=== PATIENT | female | born 1995 ===

== ENCOUNTER 2021-12-29 08:59 | Outpatient (CLI) | payer OTHER | END 2021-12-29 10:14 | disposition home or self-care (01) | LOC: PRENATAL 08:59 | PROVIDERS: ATTEND Obstetrics & Gynecology Maternal & Fetal Medicine | DX: O35.0XX0 Maternal care for (suspected) central nervous system malformation in fetus, not applicable or unspecified (principal); O35.3XX0 Maternal care for (suspected) damage to fetus from viral disease in mother, not applicable or unspecified ==

== ENCOUNTER 2022-01-23 19:54 | Emergency (ER) | payer OTHER ==
[~2022-01-23] VITALS: Ht 152.4 cm; Wt 80.3 kg
[2022-01-23] MEDS ORDERED: PRENA1 CHEW TA1.4 MG (20:04)
[2022-01-23] MEDS ORDERED: FOLIC ACID0.8 M1 (20:04)
== END 2022-01-23 20:32 | disposition home or self-care (01) ==
LOC: ER 19:54
DX: M94.0 Chondrocostal junction syndrome [Tietze] (principal); Z56.6 Other physical and mental strain related to work

== ENCOUNTER 2022-02-24 15:11 | Emergency (ER) | payer OTHER ==
[~2022-02-24] VITALS: Ht 157.5 cm; Wt 80.7 kg
[~2022-02-24 15:11] MED LIST: FOLIC ACID0.8 M1; PRENA1 CHEW TA1.4 MG
== END 2022-02-24 17:45 | disposition home or self-care (01) ==
LOC: ER 15:11
DX: O98.513 Other viral diseases complicating pregnancy, third trimester (principal); U07.1 COVID-19; Z3A.29 29 weeks gestation of pregnancy; A49.3 Mycoplasma infection, unspecified site

== ENCOUNTER 2022-03-16 08:17 | Outpatient (CLI) | payer OTHER | END 2022-03-16 09:45 | disposition home or self-care (01) | LOC: PRENATAL 08:17 | PROVIDERS: ATTEND Obstetrics & Gynecology Maternal & Fetal Medicine | DX: O26.849 Uterine size-date discrepancy, unspecified trimester (principal); O35.0XX0 Maternal care for (suspected) central nervous system malformation in fetus, not applicable or unspecified; O36.8199 Decreased fetal movements, unspecified trimester, other fetus; Z3A.32 32 weeks gestation of pregnancy ==

== ENCOUNTER 2022-03-23 15:38 | Outpatient (CLI) | payer OTHER | END 2022-03-23 16:39 | disposition home or self-care (01) | LOC: PRENATAL 15:38 | PROVIDERS: ATTEND Obstetrics & Gynecology Maternal & Fetal Medicine | DX: O35.0XX0 Maternal care for (suspected) central nervous system malformation in fetus, not applicable or unspecified (principal); O35.3XX0 Maternal care for (suspected) damage to fetus from viral disease in mother, not applicable or unspecified; Z3A.20 20 weeks gestation of pregnancy ==

== ENCOUNTER 2022-04-16 15:30 | Inpatient (IN) | payer OTHER ==
[~2022-04-16] VITALS: Ht 157.5 cm; Wt 81.6 kg
== END 2022-05-03 14:19 | disposition home or self-care (01) | DRG 807 ==
LOC: LDR 05-01 06:09 → OB/GYN 05-01 06:09
PROVIDERS: ADMIT Obstetrics & Gynecology; ATTEND Obstetrics & Gynecology
PROC: 10E0XZZ Delivery of Products of Conception, External Approach (ICD-10-PCS; principal; 2022-05-01)
PROC: 4A1HXCZ Monitoring of Products of Conception, Cardiac Rate, External Approach (ICD-10-PCS; 2022-05-01)
DX: O80 Encounter for full-term uncomplicated delivery (principal); Z37.0 Single live birth; Z3A.38 38 weeks gestation of pregnancy; Z20.822 Contact with and (suspected) exposure to COVID-19

== ENCOUNTER 2022-04-20 13:00 | Outpatient (CLI) | payer OTHER | END 2022-04-20 14:15 | disposition home or self-care (01) | LOC: PRENATAL 13:00 | PROVIDERS: ATTEND Obstetrics & Gynecology Maternal & Fetal Medicine | DX: O26.849 Uterine size-date discrepancy, unspecified trimester (principal); O36.8199 Decreased fetal movements, unspecified trimester, other fetus; O35.0XX0 Maternal care for (suspected) central nervous system malformation in fetus, not applicable or unspecified; O24.419 Gestational diabetes mellitus in pregnancy, unspecified control; Z3A.37 37 weeks gestation of pregnancy ==